=== PATIENT | female | born 1990 | race Caucasian/White ===

== ENCOUNTER 2017-04-05 17:35 | Inpatient (IN) | payer BC ==
[2017-04-05] MEDS: NS 0.9% 1000 ML*IV.FLUID IV ONE (18:15)
--- NOTE | 2017-04-05 18:39 | RAD ---
INDICATION: Sepsis COMPARISON: None TECHNIQUE: An AP portable view obtained at 1835 hours is submitted. FINDINGS: Bones/Soft Tissues: There are no acute bony findings. Cardiomediastinal: The cardiomediastinal silhouette is normal. Lungs: There is a right basal infiltrate with alveolar consolidative change. The remaining lung kraus are clear. Pleura: There are no pleural effusions. Other: None IMPRESSION: RIGHT BASILAR INFILTRATE.
[2017-04-05 18:41] LABS: Hematocrit 42 % (35-47); Hemoglobin 14.3 g/dl (12.0-16.0); Mean Corpuscular HGB Conc 34 g/dl (31-36); Mean Corpuscular Hemoglobin 28 pg (27-31); Mean Corpuscular Volume 82 fL (80-97); Mean Platelet Volume 9 um3 (7.4-10.4); Red Blood Count 5.09 10^6/ul (4.0-5.4); Red Cell Distribution Width 13 % (10.5-15); White Blood Count 10.3 10^3/ul (3.5-10.8)
[2017-04-05] MEDS ORDERED: Ondansetron INJ* 2 MG/ML VIAL IV ONE (18:49)
[2017-04-05 18:57] LABS: ALT 18 U/L (7-52); AST 21 U/L (13-39); Albumin 4.2 g/dL (3.2-5.2); Alkaline Phosphatase 74 U/L (34-104); Anion Gap 8 mmol/L (2-11); BUN/Creatinine Ratio 9.1 (8-20); Blood Urea Nitrogen 7 mg/dL (6-24); CO2 Carbon Dioxide 24 mmol/L (22-32); Calcium 9.4 mg/dL (8.6-10.3); Chloride 100 mmol/L (101-111); EGFR African American 117.5 (>60); EGFR Non-African American 91.3 (>60); Globulin 4.4 g/dL (2-4); Glucose 118 mg/dL (70-100); Potassium 3.7 mmol/L (3.5-5.0); Sodium 132 mmol/L (133-145); Total Protein 8.6 g/dL (6.4-8.9)
[2017-04-05 20:01] LABS: Urine Bacteria 1+ (Absent); Urine Bilirubin Negative (Negative); Urine Glucose Negative (Negative); Urine Nitrite Negative (Negative)
[2017-04-05] MEDS ORDERED: NS 0.9% 1000 ML* 2,000 ML IV ONE (20:09)
[2017-04-05] MEDS ORDERED: Sulfamethox/Trimethoprim DS 800/160* TAB PO ONE (20:09)
[2017-04-05] MEDS ORDERED: Ibuprofen TAB* 800 MG PO ONE (20:10)
[2017-04-05] MEDS ORDERED: Acetaminophen TAB* 325 MG PO PRN (21:22)
[2017-04-05] MEDS ORDERED: CMCS:Melatonin (NF) 3 MG TAB PO PRN (21:22)
[2017-04-05] MEDS ORDERED: Ondansetron INJ* 2 MG/ML VIAL IV PRN (21:24)
[2017-04-05] MEDS ORDERED: traMADol TAB* 50 MG PO PRN (21:24)
[2017-04-05] MEDS ORDERED: Acetaminophen TAB* 325 MG PO ONE (21:25)
[2017-04-05] MEDS ORDERED: Ondansetron ODT TAB* 4 MG PO ONE (21:27)
[2017-04-05] MEDS ORDERED: cefTRIAXone(*) 1 GM in NS 0.9% 50 ML* 50 ML IVPB ONE (21:51)
[2017-04-05] MEDS ORDERED: Azithromycin IV(*) 500 MG in NS 0.9% 250 ML* 250 ML IVPB ONE (21:51)
--- NOTE | 2017-04-05 22:34 | HP ---
H&P (Free Text) History and Physical: PCP: [facility] Date/Time: 04/05/20172119 CC: SOB, cough, fever HPI: Mrs Balderas is a 26YO healthy female who presenting with onset night of cough producing cream colored sputum associated with F/C, sweats, SOB, & palpitations. She continued to worsen developing N/V today along with non- exertional, non-radiating sharp chest pain only with cough prompting this evaluation. Work up is SIRS positive for tachycardia & hypotension (systolic in the 90s), & granulocytic shift 2nd RLL pneumonia and UTI. She did travel to [facility] early this year, but has not travelled outside the area in the past 5 months. Her had similar symptoms that spontaneously resolved ~1 week ago. 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; full code status FamHx: Mother: hypothyroidism, pre-DM; Father: chronic LBP, addiction; 3 brothers/2 sisters: 3 have addiction problems ROS: as above, otherwise reviewed and all were negative vitals: Vital Signs Temp 39.1 C 04/05/17 21:22 Pulse 91 04/05/17 22:18 Resp 18 04/05/17 17:43 BP 107/61 04/05/17 22:15 Pulse Ox 96 04/05/17 22:18 Intake & Output 04/04/17 04/05/17 04/05/17 23:59 11:59 23:59 Intake Total 3000 Balance 3000 Weight 92.533 kg Intake: IV Fluids 3000 Constitutional: NAD, normally developed, obese white female HEENM: atraumatic; sclera/conjunctiva: non-icteric/clear; hearing: clinically intact; oropharynx: clear, mucosa moist Neck: soft tissue: non-tender; thyroid: normal Pulmonary: scant R basilar crackle, good aeration, no accessory muscle use CV: RR/RR, normal S1S2, no carotid bruit, no jugular venous distention, 2+ B DP/ PT, no edema Abdominal: soft, non-distended, non-tender, no rebound/guarding/rigidity, normoactive bowel sounds, no hepatosplenomegaly or masses, no costovertebral angle tenderness Musculoskeletal: general: grossly intact; gait: stable Integumental: normal appearance and texture of exposed skin Psychiatric orientation: AA&O to PPS affect: calm mood: cooperative eye contact: good content: reliable responses: timely insight: good Testing: Lab Results 04/05/17 04/05/17 04/05/17 Range/Units 18:10 18:10 18:10 WBC 10.3 (3.5-10.8) 10^3/ul RBC 5.09 (4.0-5.4) 10^6/ul Hgb 14.3 (12.0-16.0) g/dl Hct 42 (35-47) % MCV 82 (80-97) fL MCH 28 (27-31) pg MCHC 34 (31-36) g/dl RDW 13 (10.5-15) % Plt Count 199 (150-450) 10^3/ul MPV 9 (7.4-10.4) um3 Neut % (Auto) 91.8 H (38-83) % Lymph % (Auto) 3.7 L (25-47) % [place] % (Auto) 4.1 (1-9) % Eos % (Auto) 0.1 (0-6) % Baso % (Auto) 0.3 (0-2) % Absolute Neuts (auto) 9.5 H (1.5-7.7) 10^3/ul Absolute Lymphs (auto) 0.4 L (1.0-4.8) 10^3/ul Absolute Monos (auto) 0.4 (0-0.8) 10^3/ul Absolute Eos (auto) 0 (0-0.6) 10^3/ul Absolute Basos (auto) 0 (0-0.2) 10^3/ul Absolute Nucleated RBC 0.02 10^3/ul Nucleated RBC % 0.2 INR (Anticoag Therapy) 1.17 H (0.89-1.11) APTT 33.2 (26.0-36.3) seconds Sodium 132 L (133-145) mmol/L Potassium 3.7 (3.5-5.0) mmol/L Chloride 100 L (101-111) mmol/L Carbon Dioxide 24 (22-32) mmol/L Anion Gap 8 (2-11) mmol/L BUN 7 (6-24) mg/dL Creatinine 0.77 (0.51-0.95) mg/dL Est GFR ( Amer) 117.5 (>60) Est GFR (Non-Af Amer) 91.3 (>60) BUN/Creatinine Ratio 9.1 (8-20) Glucose 118 H (70-100) mg/dL Lactic Acid (0.5-2.0) mmol/L Calcium 9.4 (8.6-10.3) mg/dL Total Bilirubin 0.60 (0.2-1.0) mg/dL AST 21 (13-39) U/L ALT 18 (7-52) U/L Alkaline Phosphatase 74 (34-104) U/L Troponin I 0.00 (<0.04) ng/mL C-Reactive Protein Pending Total Protein 8.6 (6.4-8.9) g/dL Albumin 4.2 (3.2-5.2) g/dL Globulin 4.4 H (2-4) g/dL Albumin/Globulin Ratio 1.0 (1-3) Beta HCG, Quant < 0.60 mIU/mL Urine Color Urine Appearance Urine pH (5-9) Ur Specific [place] (1.010-1.030) Urine Protein (Negative) Urine Ketones (Negative) Urine Blood (Negative) Urine Nitrate (Negative) Urine Bilirubin (Negative) Urine Urobilinogen (Negative) Ur Leukocyte Esterase (Negative) Urine WBC (Auto) (Absent) Urine RBC (Auto) (Absent) Ur Squamous Epith Cells (Absent) Urine Bacteria (Absent) Urine Glucose (Negative) Urine Ascorbic Acid (Negative) Influenza A (Rapid) (Negative) Influenza B (Rapid) (Negative) 04/05/17 04/05/17 04/05/17 Range/Units 18:10 18:31 19:32 WBC (3.5-10.8) 10^3/ul RBC (4.0-5.4) 10^6/ul Hgb (12.0-16.0) g/dl Hct (35-47) % MCV (80-97) fL MCH (27-31) pg MCHC (31-36) g/dl RDW (10.5-15) % Plt Count (150-450) 10^3/ul MPV (7.4-10.4) um3 Neut % (Auto) (38-83) % Lymph % (Auto) (25-47) % [place] % (Auto) (1-9) % Eos % (Auto) (0-6) % Baso % (Auto) (0-2) % Absolute Neuts (auto) (1.5-7.7) 10^3/ul Absolute Lymphs (auto) (1.0-4.8) 10^3/ul Absolute Monos (auto) (0-0.8) 10^3/ul Absolute Eos (auto) (0-0.6) 10^3/ul Absolute Basos (auto) (0-0.2) 10^3/ul Absolute Nucleated RBC 10^3/ul Nucleated RBC % INR (Anticoag Therapy) (0.89-1.11) APTT (26.0-36.3) seconds Sodium (133-145) mmol/L Potassium (3.5-5.0) mmol/L Chloride (101-111) mmol/L Carbon Dioxide (22-32) mmol/L Anion Gap (2-11) mmol/L BUN (6-24) mg/dL Creatinine (0.51-0.95) mg/dL Est GFR ( Amer) (>60) Est GFR (Non-Af Amer) (>60) BUN/Creatinine Ratio (8-20) Glucose (70-100) mg/dL Lactic Acid 1.2 (0.5-2.0) mmol/L Calcium (8.6-10.3) mg/dL Total Bilirubin (0.2-1.0) mg/dL AST (13-39) U/L ALT (7-52) U/L Alkaline Phosphatase (34-104) U/L Troponin I (<0.04) ng/mL C-Reactive Protein Total Protein (6.4-8.9) g/dL Albumin (3.2-5.2) g/dL Globulin (2-4) g/dL Albumin/Globulin Ratio (1-3) Beta HCG, Quant mIU/mL Urine Color Yellow Urine Appearance Cloudy Urine pH 7.0 (5-9) Ur Specific [place] 1.018 (1.010-1.030) Urine Protein 1+(30 mg/dl) H (Negative) Urine Ketones Negative (Negative) Urine Blood Negative (Negative) Urine Nitrate Negative (Negative) Urine Bilirubin Negative (Negative) Urine Urobilinogen Negative (Negative) Ur Leukocyte Esterase 1+ H (Negative) Urine WBC (Auto) 1+(6-10/hpf) H (Absent) Urine RBC (Auto) 3+(>10/hpf) H (Absent) Ur Squamous Epith Cells Present H (Absent) Urine Bacteria 1+ H (Absent) Urine Glucose Negative (Negative) Urine Ascorbic Acid * H (Negative) Influenza A (Rapid) Negative (Negative) Influenza B (Rapid) Negative (Negative) CXR, personally reviewed: IMPRESSION: RIGHT BASILAR INFILTRATE. Impression: 26F presenting with sepsis (tachycardia, systolic <100, granulocytic shift, fever) 2nd RLL pneumonia & UTI DIAGNOSIS & PLAN Primary sepsis 2nd RLL pneumonia & UTI : IV azithromycin & ceftriaxone : IVFs : guaifenesin : incentive spirometry : blood, sputum, & urine CXs : supplemental oxygen : supportive care Admission Rational: inpatient for sepsis 2nd RLL pneumonia & UTI requiring IVFs & IV ABX; inappropriate for outpatient setting DVTp: heparin SQ Code Status: full HCP:
[2017-04-05 22:45] LABS: C Reactive Protein 217.31 mg/L (< 5.00)
[2017-04-05] MEDS: NS 0.9% 1000 ML* 1,000 ML IV SCH (23:29)
[2017-04-05] MEDS ORDERED: Azithromycin IV(*) 500 MG in NS 0.9% 250 ML* 250 ML IVPB SCH (23:45)
[2017-04-06] MEDS: Benzonatate CAP* 100 MG PO PRN ×2 (04:21→13:18)
[2017-04-06] MEDS ORDERED: Heparin VIAL(*) 5000 UNITS/ML VIAL (FIVE THOUSAND) SUBCUT SCH (06:00)
[2017-04-06] MEDS ORDERED: Omeprazole CAP* 20 MG PO SCH (06:00)
[2017-04-06] MEDS: NS 0.9% 1000 ML* 1,000 ML IV SCH (07:45)
[2017-04-06 07:46] LABS: Hematocrit 34 % (35-47); Hemoglobin 11.7 g/dl (12.0-16.0); Mean Corpuscular HGB Conc 34 g/dl (31-36); Mean Corpuscular Hemoglobin 28 pg (27-31); Mean Corpuscular Volume 82 fL (80-97); Mean Platelet Volume 9 um3 (7.4-10.4); Red Blood Count 4.16 10^6/ul (4.0-5.4); Red Cell Distribution Width 14 % (10.5-15); White Blood Count 8.7 10^3/ul (3.5-10.8)
[2017-04-06 07:56] LABS: BUN/Creatinine Ratio 10.2 (8-20); Calcium 7.5 mg/dL (8.6-10.3); EGFR African American 159.7 (>60); EGFR Non-African American 124.2 (>60); Potassium 3.7 mmol/L (3.5-5.0)
[2017-04-06] MEDS ORDERED: Influenza VAC *QUAD* 2017-18* 0.5 ML SYRINGE IM ONE (09:00)
[2017-04-06] MEDS ORDERED: Docusate CAP* 100 MG PO SCH (09:00)
[2017-04-06] MEDS ORDERED: guaiFENesin ER TAB 600 MG PO SCH (09:00)
[2017-04-06 12:49] VITALS: BP 119/50
[2017-04-06] MEDS ORDERED: cefTRIAXone VIAL(*) 1,000 MG in NS 0.9% 50 ML* 50 ML IVPB SCH (22:00)
--- NOTE | 2017-04-07 07:53 | DS ---
DISCHARGE SUMMARY: DATE OF ADMISSION: 04/05/17 DATE OF DISCHARGE: 04/06/17 PRIMARY CARE PROVIDER: Non-staff doctor from [facility]. MY ATTENDING WHILE IN THE HOSPITAL: Ivan Hartmann MD * (DICTATED BY JOSE SHARP) PRINCIPAL DIAGNOSES: 1. Right lower lobe pneumonia. 2. Urinary tract infection. SECONDARY DIAGNOSIS: Possible polycystic ovary syndrome. DISCHARGE MEDICATIONS: 1. Azithromycin 250 mg p.o. daily x6. 2. Cefpodoxime 200 mg p.o. q.12 hours x26. 3. Tessalon 200 mg p.o. t.i.d. p.r.n. as needed for cough. 4. Guaifenesin 1200 mg p.o. b.i.d., 28 tabs. HOSPITAL COURSE: This is a summary of the hospital course. For more details, please see the history and physical by Julio Burgos MD, from 04/05/17. In brief, the patient is a 26-year-old female with no significant past medical history who presented to the emergency department with productive cough, fevers , chills, sweats, shortness of breath, and palpitations. Since night, the patient's had similar symptoms that resolved. The patient was SIRS positive at the time of admission with hypotension and tachycardia. The patient 's chest x-ray showed a right lower lobe infiltrate and the patient's urine was suggestive for UTI. The patient was started on fluids and antibiotics as well as supportive measures for presumptive right lower lobe pneumonia and urinary tract infection. The patient improved significantly overnight with her blood pressure returning to normal levels and her fever breaking and her shortness of breath increasing significantly. The patient felt she was ready to discharge in the morning. The patient had no other acute complaints overnight. The patient complained of several episodes of diarrhea overnight. STUDIES DONE WHILE IN THE HOSPITAL: Chest x-ray read as right basilar infiltrate. PHYSICAL EXAMINATION ON DAY OF DISCHARGE: In general, the patient is a 26-year- old female who appears her stated age and sitting in the hospital bed in no acute distress. Vital Signs: At 7:31 on 04/06/17, temperature 98.1, pulse rate 103, respiratory rate 16, oxygen saturation 100% on room air, blood pressure 103/62. HEENT: Head normocephalic, atraumatic. Eyes: Equal, round, reactive to light. Sclerae anicteric. No conjunctival injection. Mucous membranes moist. No pharyngeal erythema. Neck: Supple and nontender. No lymphadenopathy. Respiratory: Rhonchorous noises heard in the right lower lobe. Lungs are otherwise clear to auscultation. Good air exchange bilaterally. Cardiac: Regular rate and rhythm. No clicks, murmurs, gallops, or rubs. Pulses are 2+ bilaterally in the radial, posterior tibialis, and dorsalis pedis areas. No edema. Abdomen: Soft, nontender and nondistended. Bowel sounds are present in all 4 quadrants. No abdominal bruits are auscultated. No hepatosplenomegaly. Genitourinary: No suprapubic tenderness and no CVA tenderness. Skin: [place], dry, and intact. No rash. Neuro: Alert and oriented x3. Cranial nerves II through XII grossly intact. LABORATORY DATA: On 04/06/17, white blood cell count 8.7, hemoglobin 11.7, hematocrit 34, platelet count 119. Sodium 136, potassium 3.7, chloride 109, carbon dioxide 23, anion gap 4, BUN 6, creatinine 0.59, glucose 94, calcium 7.5. DISCHARGE PLAN: The patient will discharged home on cefpodoxime to finish a 14- day course of antibiotics and azithromycin to finish a 7-day course of antibiotics. The patient will also be prescribed guaifenesin and Tessalon for supportive care. The patient will follow up with her primary care doctor in a week. The patient will return to the emergency department if she has increasing shortness of breath. The patient will be excused from work for 2 weeks, but can return anytime when she feels able and is afebrile. 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 TIME SPENT: Approximately 40 minutes were spent on this discharge, half of which was spent [id number] with the patient obtaining history and physical. JOSE SHARP [id number]/CPS #: [id number] ABILIO
== END 2017-04-06 13:30 | disposition home or self-care (01) | DRG 139 ==
LOC: ED 17:35 → MED 21:18
PROVIDERS: ADMIT Hospitalist; ATTEND Hospitalist
DX: J18.9 Pneumonia, unspecified organism (principal); N39.0 Urinary tract infection, site not specified; E28.2 Polycystic ovarian syndrome; Z88.0 Allergy status to penicillin; Z83.49 Family history of other endocrine, nutritional and metabolic diseases
CPT/HCPCS: 36415; 71010; 80048; 80053; 81003; 81015; 83605; 84484; 84702; 85025; 85610; 85730; 86140; 87040; 87070; 87086; 87205; 87502; 87899; 90686; A9270-GY; J0456; J0696; J1644; J2405